=== PATIENT | male | born 1985 ===

== ENCOUNTER 2018-09-12 05:52 | Outpatient (CLI) | payer OTHER ==
[2018-09-12 07:05] LABS: eGFR (Non-African) > 60
[2018-09-12 07:06] LABS: BASOPHILS % 0.6 (0.0-1.5); MEAN CORPUSCULAR HEMOGLOBIN 30.5 pg (28.0-34.0); MONOCYTES % 7.4 % (0.0-11.0); NEUTROPHILS # 4.7 # k/uL (1.4-7.7)
== END 2018-09-12 06:05 ==
LOC: LAB 05:52
PROVIDERS: ATTEND Family Medicine
DX: R00.0 Tachycardia, unspecified (principal)
CPT/HCPCS: 36415; 80053; 85025; 85379

== ENCOUNTER 2018-09-13 17:16 | Outpatient (CLI) | payer OTHER | END 2018-09-13 17:18 | LOC: LAB 17:16 | PROVIDERS: ATTEND General Practice | DX: Z11.59 Encounter for screening for other viral diseases (principal) | CPT/HCPCS: 86308 ==